=== PATIENT | male | born 1980 | race Two or more races ===

== ENCOUNTER 2025-04-11 20:53 | Emergency (ER) | payer MEDICAID, OTHER, SELFPAY ==
[~2025-04-11] VITALS: Ht 172.7 cm; Wt 107.3 kg
[2025-04-11 21:39] LABS: Nucleated Red Blood Cells % 0.1 %
[2025-04-11 21:40] LABS: Hematocrit 44.9 % (41.0-53.0); Hemoglobin 16.5 g/dL (13.5-17.5); Mean Corpuscular Hemoglobin 30.4 pg (28.0-32.0); Mean Corpuscular Volume 82.6 fL (80.0-100.0)
[2025-04-11 21:51] LABS: Chloride 106 mmol/L (98-107); Potassium 4.0 mmol/L (3.5-5.1); Sodium 142 mmol/L (136-145)
--- NOTE | 2025-04-11 21:51 | DVH ---
CHEST RADIOGRAPH Indication: CHEST PAIN Technique: Single frontal view of the chest was obtained COMPARISON: None FINDINGS: Lungs and pleural spaces are clear. Cardiac silhouette and perico are within normal limits. Bones and soft tissues demonstrate no significant abnormality. IMPRESSION: No acute disease.
[2025-04-11 21:52] LABS: Anion Gap 10 (5-15); Calcium 9.6 mg/dL (8.7-10.4); Carbon Dioxide 26 mmol/L (20-31)
--- NOTE | 2025-04-11 21:55 | ECG ---
[facility] Test Date: 2025-04-11 Test Time: 21:54:37 Pat Name: SHEREE CONLEY Department: Room: Gender: M [employer] Consultant: JAY : 1980 Requested By: EMERGENCY EMERGENCY Order Number: [id number] Reading MD: Rob Call Measurements Intervals [place] Rate: 57 P: 52 SD: 135 QRS: 48 QRSD: 118 T: 55 QT: 389 QTc: 379 Interpretive Statements Sinus rhythm Nonspecific intraventricular conduction delay Probable anterolateral infarct, old Electronically Signed On 04-12-2025 11:01:14 PST by Rob Call Please click the below link to view image of tracing.
[2025-04-11 21:57] LABS: BUN/Creatinine Ratio 10.1 (10.0-20.0); Blood Urea Nitrogen 11 mg/dL (9-23)
[2025-04-11 21:58] LABS: Glucose 127 mg/dL (74-106)
[2025-04-11 23:34] VITALS: BP 141/81; PULSE 64; RESP 18; TEMP 98.4; O2SAT 97
[2025-04-11] MEDS: ACETAMINOPHEN 500 MG TAB or CAP PO ONE (23:35)
--- NOTE | 2025-04-11 23:35 | DVH ---
CHEST RADIOGRAPH Indication: Left-sided chest pain Technique: Frontal and lateral view of the chest was obtained Comparison: XY CHEST XRAY 1 VIEW on DOS: 04/11/25 FINDINGS: Lines and Tubes: None Lungs: Clear Pleura: No effusion. No pneumothorax. Cardiomediastinal contours: Unremarkable Bones: Unremarkable IMPRESSION: No evidence of acute disease.
[2025-04-11] MEDS: clonazePAM 0.5 MG TAB PO ONE (23:36)
[2025-04-11] MEDS: KETOROLAC TROMETH 30 MG/ML 1ML VIAL IV ONE (23:36)
[2025-04-11] MEDS: LIDOCAINE 5% TOPICAL PATCH TOP ONE (23:36)
--- NOTE | 2025-04-11 23:46 | ED.PDOC ---
History of Present Illness HPI Comments 44-year-old male, , with a history of anxiety, schizophrenia, and tobacco cigarette user, presents with chief complaint of anxiety. Patient endorses on sudden onset of a panic attack, earlier, today after, recently, running out of his 1mg clonazepam anxiety medication, yesterday, taking his remaining half d ose, today. He reports on having associated shortness of breath, left arm numbness, and chills alongside tightening chest wall pain he has had since fracturing his left ribs after falling often E scooter a few days ago. For rib pain, patient comments on taking 600 mg ibuprofen to manage it, with last intake being around 1200, today. No further pertinent history or events are reported. Patient denies on any further acute symptoms. REVIEW OF SYSTEMS: General: Chills. No fever or fatigue HEENT: No sore throat, no earache, no congestion, no neck pain. Cardiac: Chest pain. Left arm numbness. No palpitations. Lungs: Shortness of breath, no cough. GI: No nausea, no vomiting, no diarrhea, no constipation, no abdominal pain : No dysuria, frequency, or urgency. No hematuria. Musculoskeletal: No joint pain , no joint swelling, no extremity edema. Skin: No rash, no itching. Neuro: Left arm numbness. No headache, no dizziness, no weakness Psych: Anxiety. (And as sated in HPI) PHYSICAL EXAM: General: Awake, alert and oriented. No acute distress. Skin: Skin in warm, dry and intact. Appropriate color for ethnicity. HEENT: The head is normocephalic and atraumatic. Conjunctivae are clear without exudates or hemorrhage. Sclera is non-icteric. Eyelids are normal in appearance without swelling or lesions. Oral mucosa is pink and moist Neck: The neck is supple with normal range of motion. No JVD. Cardiac: Heart rate and rhythm are normal. No murmurs, gallops, or rubs are auscultated. Respiratory: No signs of respiratory distress. Lung sounds are clear in all lobes bilaterally without rales, rhonchi, or wheezes. Abdominal: Abdomen is soft, non-tender without distention, guarding or rigidity. Bowel sounds are present and normoactive in all four quadrants. Musculoskeletal: Left chest wall tenderness. Extremities: Upper and lower extremities are atraumatic in appearance without deformity or edema. Neurological: The patient is awake, alert and oriented to person, place, and time with normal speech. Speech is clear. There is no facial asymmetry. Psychiatric: Appropriate mood and affect. Good judgement and insight. Chief Complaint: Chest Pain Time Seen by MD: 22:22 Primary Care Provider: UNK Reviewed Notes: Nurses Notes, Allergies Allergies: Coded Allergies: NO KNOWN ALLERGIES (Unverified , 12/07/15) Information Source: Patient Mode of Arrival: Ambulatory Severity: Moderate Timing: Hours Duration: Since onset Prehospital treatment: None Past Medical History PAST MEDICAL HISTORY: Anxiety, Schizophrenia Family History Family History: Unknown Social History Smoker: Cigarettes, Less Than 1 Pack/Day Alcohol: Denies ETOH Use Drugs: Denies Drug Use Lives In: Home Was a procedure done? Was a procedure done?: No EKG EKG : Pulse Rate (adult): 57 [place]: Normal Cardiac Rhythm: NSR Block: None Hypertrophy: None ST: Normal Differential Dx Considerations may include: Differential diagnoses considered include acute ischemic coronary syndrome, aortic dissection, cardiac tamponade, mediastinitis, pulmonary embolus, pneumothorax, tension pneumothorax, esophageal rupture, coronary artery vasospasm, myocarditis, pericarditis, pneumonia, pulmonary edema, esophageal tear, pancreatitis, aortic stenosis, dilated cardiomyopathy, hypertrophic cardiomyopathy, mitral valve prolapse, malignancy, pleuritis, pneumomediastinum, primary pulmonary hypertension, cholecystitis, esophageal spasm, esophagus, gastritis, GERD, peptic ulcer disease, costochondritis, fibromyalgia, rib fracture, herpes zoster, radicular syndromes, thoracic outlet syndrome, somatization. X-Ray, Labs, Meds, VS Vital Signs Date Time Temp Pulse Resp B/P (MAP) Pulse Ox O2 Delivery O2 Flow Rate FiO2 04/11/25 23:34 64 18 97 Room Air* 0 21 04/11/25 23:34 98.4 64 18 141/81 (101) 97 98.4 04/11/25 21:54 57 04/11/25 21:03 77 04/11/25 20:57 98.9 93 18 154/74 98 98.9 Lab Test 04/11/25 22:18 04/11/25 21:10 Range/Units Troponin I High Sensitivity < 3 L < 3 L </=54 ng/L White Blood Count 11.6 H 4.4-10.8 10^3/uL Red Blood Count 5.43 4.5-5.90 10^6/uL Hemoglobin 16.5 13.5-17.5 g/dL Hematocrit 44.9 41.0-53.0 % Mean Corpuscular Volume 82.6 80.0-100.0 fL Mean Corpuscular Hemoglobin 30.4 28.0-32.0 pg Mean Corpuscular Hemoglobin Concent 36.8 H 32.0-36.0 g/dL Red Cell Distribution Width 13.7 11.8-14.3 % Platelet Count 220 140-450 10^3/uL Mean Platelet Volume 7.0 6.9-10.8 fL Neutrophils (%) (Auto) 81.2 H 37.0-80.0 % Lymphocytes (%) (Auto) 13.8 10.0-50.0 % Monocytes (%) (Auto) 4.6 0.0-12.0 % Eosinophils (%) (Auto) 0.1 0.0-7.0 % Basophils (%) (Auto) 0.3 0.0-2.0 % Neutrophils # (Auto) 9.4 H 1.6-8.6 10 ^3/uL Lymphocytes # (Auto) 1.6 0.4-5.4 10 ^3/uL Monocytes # (Auto) 0.5 0-1.3 10 ^3/uL Eosinophils # (Auto) 0 0-0.8 10 ^3/uL Basophils # (Auto) 0 0-0.2 10 ^3/uL Nucleated Red Blood Cells 0.1 % Sodium Level 142 136-145 mmol/L Potassium Level 4.0 3.5-5.1 mmol/L Chloride Level 106 98-107 mmol/L Carbon Dioxide Level 26 20-31 mmol/L Anion Gap 10 5-15 Blood Urea Nitrogen 11 9-23 mg/dL Creatinine 1.09 0.700-1.30 mg/dL Glomerular Filtration Rate Calc 85 >90 mL/min BUN/Creatinine Ratio 10.1 10.0-20.0 Serum Glucose 127 H 74-106 mg/dL Calcium Level 9.6 8.7-10.4 mg/dL Current Medications Medications (Trade) Dose Ordered Sig/Dino Route Start Time Stop Time Status Last Admin Ketorolac Tromethamine (Toradol Injection) 60 mg ONCE ONCE IV 04/11/25 23:15 04/11/25 23:16 DC 04/11/25 23:36 Acetaminophen (Tylenol Tablet Or Capsule) 1,000 mg ONCE ONCE PO 04/11/25 23:15 04/11/25 23:16 DC 04/11/25 23:35 Lidocaine (Lidoderm 5% Topical Patch) 1 patch ONCE ONCE TOP 04/11/25 23:15 04/11/25 23:16 DC 04/11/25 23:36 Clonazepam (KlonoPIN TABLET) 1 mg ONCE ONCE PO 04/11/25 23:15 04/11/25 23:16 DC 04/11/25 23:36 [place] [id number] Ph: [phone] DIAGNOSTIC IMAGING Diagnostic Imaging Report : [id number] Signed PATIENT: SHEREE CONLEY ACCT: [id number] UNIT: [id number] : 1980 LOC: ER ROOM / BED: / AGE / SEX: 44 / M ADM STATUS: REG ER SERVICE 01 ORDERING PHYSICIAN: VEL BRAY MD PROCEDURE(s): CXR1 - CHEST XRAY 1 VIEW REASON: CHEST PAIN ORDER NUMBER(s): [id number], ACCESSION NUMBER(s): [id number] CHEST RADIOGRAPH Indication: CHEST PAIN Technique: Single frontal view of the chest was obtained COMPARISON: None FINDINGS: Lungs and pleural spaces are clear. Cardiac silhouette and perico are within normal limits. Bones and soft tissues demonstrate no significant abnormality. IMPRESSION: No acute disease. ATED BY: DEVON MCCARTHY MD DICTATED DATE/TIME: 04/11/252147 SIGNED BY: DEVON MCCARTHY MD SIGNED DATE/TIME: 04/11/252147 CC: [address] [id number] Ph: [phone] DIAGNOSTIC IMAGING Diagnostic Imaging Report : [id number] Signed PATIENT: SHEREE CONLEY ACCT: [id number] UNIT: [id number] : 1980 LOC: ER ROOM / BED: / AGE / SEX: 44 / M ADM STATUS: REG ER SERVICE 12 ORDERING PHYSICIAN: VEL BRAY MD PROCEDURE(s): CXR2 - CHEST TWO VIEWS ROUTINE REASON: Left-sided chest pain ORDER NUMBER(s): [id number], ACCESSION NUMBER(s): [id number] CHEST RADIOGRAPH Indication: Left-sided chest pain Technique: Frontal and lateral view of the chest was obtained Comparison: XY CHEST XRAY 1 VIEW on DOS: 04/11/25 FINDINGS: Lines and Tubes: None Lungs: Clear Pleura: No effusion. No pneumothorax. Cardiomediastinal contours: Unremarkable Bones: Unremarkable IMPRESSION: No evidence of acute disease. ATED BY: DEVON MCCARTHY MD DICTATED DATE/TIME: 04/11/252332 SIGNED BY: DEVON MCCARTHY MD SIGNED DATE/TIME: 04/11/252332 CC: Time of 1ST Reevaluation: 23:43 Reevaluation 1ST: Unchanged Patient Education/Counseling: Need For Follow Up Family Education/Counseling: No Family Present SEPSIS Sepsis Screen Date sepsis recognized/suspect: Apr 11, 2025 Time Sepsis recognized/suspect: 2099 Recent Procedure: No On Antibiotic Therapy: No Respiratory Rate >20: No Heart Rate >90: No Temp<36 C (96.8 F) or >38.3 C: No SBP <90 or MAP <65 mmHG: No New Acute Mental Status Change: No Is the patient on CPAP, BIPAP,: No Physician Orders Electrocardigram (04/11/25 21:57) Electrocardigram (04/11/25 23:57) Troponin-I Hs (04/12/25 00:02) Stat Ekg For Chest Pain (04/11/25 21:02) Chest Xray 1 View (04/11/25 21:02) Chest Two Views Routine (04/11/25 23:13) Vital Signs Date Time Temp Pulse Resp B/P (MAP) Pulse Ox O2 Delivery O2 Flow Rate FiO2 04/11/25 23:34 64 18 97 Room Air* 0 21 04/11/25 23:34 98.4 64 18 141/81 (101) 97 98.4 04/11/25 21:54 57 04/11/25 21:03 77 04/11/25 20:57 98.9 93 18 154/74 98 98.9 Laboratory Tests Test 04/11/25 21:10 White Blood Count 11.6 10^3/uL (4.4-10.8) H Medications Medications Dose Ordered Sig/Dino Route Start Time Stop Time Status Last Admin Dose Admin Acetaminophen 1,000 mg ONCE ONCE PO 04/11/25 23:15 04/11/25 23:16 DC 04/11/25 23:35 Clonazepam 1 mg ONCE ONCE PO 04/11/25 23:15 04/11/25 23:16 DC 04/11/25 23:36 Ketorolac Tromethamine 60 mg ONCE ONCE IV 04/11/25 23:15 04/11/25 23:16 DC 04/11/25 23:36 Lidocaine 1 patch ONCE ONCE TOP 04/11/25 23:15 04/11/25 23:16 DC 04/11/25 23:36 Departure 1 Departure Time of Disposition: 23:45 Impression: Primary Impression: Chest pain Additional Impression: Anxiety disorder Disposition: HOME / SELF CARE / HOMELESS Condition: Stable Additional Instructions: ED DISCHARGE INSTRUCTIONS Instructions: Please read all instructions provided in this packet carefully. Although you have been discharged from the Emergency Department, this does not mean that you have a "clean bill of health". No definitive diagnosis for your symptoms has been made today. It is possible that you are in the process of developing a serious illness. This is why you must return to the ED without fail if any new or worsening symptoms (especially if your symptoms include chest pain, trouble breathing, abdominal pain, fever, headache, confusion, trouble seeing, or trouble walking) It is also very important that you see a primary care provider (PCP) within the next 3-5 days to follow up. If you are unable to get an appointment, return to the ED for re-evaluation. CHEST PAIN EDUCATION There are many things that can cause chest pain. Some are not serious and will get better on their own in a few days. But some kinds of chest pain need more testing and treatment. Your doctor may have recommended a follow-up visit in the next few days. If you are not getting better, you may need more tests or treatment. Even though your doctor has released you, you still need to watch for any problems. The doctor carefully checked you, but sometimes problems can develop later. If you have new symptoms or if your symptoms do not get better, get medical care right away. If you have worse or different chest pain or pressure that lasts more than 5 minutes or you passed out (lost consciousness), call 911 or seek other emergency help right away. A medical visit is only one step in your treatment. Even if you feel better, you still need to do what your doctor recommends, such as going to all suggested follow-up appointments and taking medicines exactly as directed. This will help you recover and help prevent future problems. How can you care for yourself at home? Rest until you feel better. Take your medicine exactly as prescribed. Call your doctor if you think you are having a problem with your medicine. Do not drive after taking a prescription pain medicine. When should you call for help? Call 911 if: You passed out (lost consciousness). You have severe difficulty breathing. You have symptoms of a heart attack. These may include: Chest pain or pressure, or a strange feeling in your chest. Sweating. Shortness of breath. Nausea or vomiting. Pain, pressure, or a strange feeling in your back, neck, jaw, or upper belly or in one or both shoulders or arms. Lightheadedness or sudden weakness. A fast or irregular heartbeat. After you call 911, the coloring machine operator may tell you to chew 1 adult-strength or 2 to 4 low-dose aspirin. Wait for an ambulance. Do not try to drive yourself. Call your doctor now or seek immediate medical care if: You have any trouble breathing. You have new or different chest pain. You are dizzy or lightheaded, or you feel like you may faint. Watch closely for changes in your health, and be sure to contact your doctor if you do not get better as expected. Current as of: January 01, 2024 Author: [employer] Staff? Comments MDM: 44-year-old male who presented with chest pain and anxiety after running out of his Klonopin. Also reporting left-sided chest pain after recent rib fracture. EKG negative for signs of ischemia. High sensitivity troponin negative. CXR shows no acute process. Presentation not suggestive of acute coronary syndrome, pulmonary embolism or aortic dissection. Patient improved at time of discharge. Patient has not been hypoxic, in respiratory distress or dyspneic during the ED observation. Patient able to ambulate without difficulty. Patient felt stable for discharge to follow up with PCP promptly. Patient advised to return to the ED with any new, worsening or concerning symptoms or inability to follow up with PCP. -------- I reviewed the following notes from the pt's past medical encounters: N/A The following tests were ordered, and results were reviewed by me: (See diagnostic results section) The following test were independently interpreted by me: EKG Additional information was gathered from interviewing the following independent historians: N/A I reviewed and agreed with the following test results read by other providers: Chest x-ray I discussed treatments and results with patient Decision regarding hospitalization or escalation of hospital level of care: Risks and benefits of admission for further treatment of patient's condition was considered however due to patient's stable condition patient will be discharged to follow up closely or return to care for worsening of condition or inability to follow up. Critical Care Note Critical Care Time?: No Stability Stability form required: No Heart Score Heart Score: Heart Score Response (Comments) Value History N/A 0 EKG N/A 0 Age N/A 0 Risk Factors N/A 0 Troponin N/A 0 Total 0 I personally scribed for EVL BRAY MD ([email or web address]) on 04/12/25 at 00:03. Electronically submitted by Javier Mendoza ([email or web address]). I personally scribed for VEL BRAY MD ([email or web address]) on 04/12/25 at 00:04. Electronically submitted by Javier Mendoza ([email or web address]). EVL BRAY MD Apr 11, 2025 23:46
[2025-04-12 00:03] VITALS: PULSE 57
--- NOTE | 2025-04-12 05:45 | ECG ---
[facility] Test Date: 2025-04-11 Test Time: 21:03:15 Pat Name: SHEREE CONLEY Department: Room: Gender: M Arc Welder: : 1980 Requested By: EMERGENCY EMERGENCY Order Number: [id number] Reading MD: Rob Call Measurements Intervals [place] Rate: 77 P: 48 PA: 133 QRS: 43 QRSD: 117 T: 35 QT: 364 QTc: 412 Interpretive Statements Sinus rhythm Nonspecific intraventricular conduction delay Baseline wander in lead(s) V3 Electronically Signed On 04-12-2025 11:00:53 PST by Rob Call Please click the below link to view image of tracing.
== END 2025-04-12 00:02 | disposition home or self-care (01) ==
LOC: ER 20:53
DX: F41.9 Anxiety disorder, unspecified (principal); R07.9 Chest pain, unspecified; F20.9 Schizophrenia, unspecified; F17.210 Nicotine dependence, cigarettes, uncomplicated
CPT/HCPCS: 36415; 71045; 71046; 80048; 84484; 85025; 93005; 96374; 99285; J1885